=== PATIENT | male | born 1960 | race Caucasian/White ===

== ENCOUNTER 2018-03-15 15:11 | Emergency (ER) | payer SELFPAY ==
[2018-03-15] MEDS ORDERED: Diphtheria,Pertussis(Acell),Tetanus Vaccine 0.5 ML SDV IM ONE (16:04)
--- NOTE | 2018-03-15 16:07 | EDM.PDOC ---
ED HPI GENERAL MEDICAL PROBLEM - General Chief Complaint: Lower Extremity Injury/Pain Stated Complaint: STEPPED ON TIMUR NAIL Time Seen by Provider: 03/15/18 15:50 Source of Information: Reports: Patient, RN Notes Reviewed History Limitations: Reports: No Limitations - History of Present Illness INITIAL COMMENTS - FREE TEXT/NARRATIVE: 57-year-old gentleman presents to the emergency department today with a puncture wound to his left foot, he injured himself while stepping on a nail, has no functional complaints Left Feet Pain Score (Numeric/FACES): 5 - Related Data Allergies Allergy/AdvReac Type Severity Reaction Status Date / Time No Known Allergies Allergy Verified 03/15/18 15:43 Home Meds: Home Meds NK [No Known Home Meds] 03/15/18 [History] Past Medical History - Past Health History Medical/Surgical History: Denies Medical/Surgical History Social & Family History - Tobacco Use Smoking Status *Q: Never Smoker - Caffeine Use Caffeine Use: Reports: Coffee - Recreational Drug Use Recreational Drug Use: No Review of Systems - Review of Systems Review Of Systems: See Below Constitutional: Reports: No Symptoms Musculoskeletal: Reports: No Symptoms Skin: Reports: Wound Neurological: Reports: No Symptoms ED EXAM, GENERAL - Physical Exam Exam: See Below Free Text/Narrative:: Examination of the left foot reveals a puncture wound between the metacarpal heads of digits 3 and 4 the wound is healed nonbleeding there is no tenderness around the site no erythema around the site pedal pulse is +2 full range of motion of all digits Exam Limited By: No Limitations General Appearance: Alert, WD/WN, No Apparent Distress Course - Vital Signs Last Recorded V/S: Last Vital Signs Temp 95.8 F 03/15/18 15:37 Pulse 81 03/15/18 15:37 Resp 16 03/15/18 15:37 BP 124/89 03/15/18 15:37 Pulse Ox 97 03/15/18 15:37 - Orders/Labs/Meds Orders: Active Orders 24 hr Category Date Time Status Vaccines to be Administered [RC] PER UNIT ROUTINE Care 03/15/18 16:04 Ordered Diphth,Pertuss(Acell),Tet Vac [Adacel] Med 03/15/18 16:04 Once 0.5 ml IM .ONCE ONE Departure - Departure Time of Disposition: 16:06 Disposition: Home, Self-Care 01 Condition: Good Clinical Impression: Puncture wound of foot, left Qualifiers: Encounter type: initial encounter Qualified Code(s): S91.332A - Puncture wound without foreign body, left foot, initial encounter - Discharge Information Referrals: PCP,None [Primary Care Provider] - Additional Instructions: Any signs of infection develop recommend starting antibiotics, otherwise follow- up with your primary care provider upon return home if not better - My Orders Last 24 Hours: My Active Orders 03/15/18 16:04 Vaccines to be Administered [RC] PER UNIT ROUTINE Diphth,Pertuss(Acell),Tet Vac [Adacel] 0.5 ml IM .ONCE ONE - Assessment/Plan Last 24 Hours: My Active Orders 03/15/18 16:04 Vaccines to be Administered [RC] PER UNIT ROUTINE Diphth,Pertuss(Acell),Tet Vac [Adacel] 0.5 ml IM .ONCE ONE Plan: Assessment Acuity = acute Site and laterality = puncture wound left foot Etiology = nail from house construction Manifestations = none Location of injury = Home Lab values = none Plan Tetanus was provided, prescription was written for Levaquin 500 mg 1 tab by mouth daily 7 days this was a hard copy that he can take with him if any signs of infection develop, [place], follow-up with his primary care upon return home if needed This note was dictated using [email or web address] voice recognition software please call with any questions on syntax or grammar.
== END 2018-03-15 16:16 | disposition home or self-care (01) ==
LOC: JP.ED 15:11
DX: S91.332A Puncture wound without foreign body, left foot, initial encounter (principal); Z23 Encounter for immunization; W45.0XXA Nail entering through skin, initial encounter
CPT/HCPCS: 90471; 90715; 99283-25